=== PATIENT | male | born 1995 | race Caucasian/White ===

== ENCOUNTER 2019-11-05 12:02 | Inpatient (IN) | payer OTHER ==
[~2019-11-05 12:02] MED LIST: Dexamethasone 20 MG/5 ML VIAL ONE; Lidocaine 1% PF 5 ML VIAL ONE; Ondansetron PF 4 MG/2 ML Vial ONE; PROPOFOL 200 MG/20 ML VIAL ONE; Rocuronium Bromide 10 MG/ML (10ML VIAL) ONE
[2019-11-05] MEDS ORDERED: Adacel (T-DAP) 0.5 ML SYRINGE ONE (12:04)
[2019-11-05] MEDS ORDERED: Fentanyl 100 MCG/2 ML VIAL ONE ×6 (12:19→17:01)
--- NOTE | 2019-11-05 12:29 | RAD ---
CHEST 1 VIEW: Date: 11/05/2019 HISTORY: Injury from a fall. FINDINGS: Heart size is within normal limits. Lungs are clear. No confluent pneumonia, overt edema, or pleural effusion. No pneumothorax. IMPRESSION: No significant acute intrathoracic disease. POS: [facility]
[2019-11-05 12:35] LABS: #Basophils 0.1 thou/uL (0.0-0.2); #Eosinphils 0.1 thou/uL (0.0-0.7); #Lymphocytes 2.5 thou/uL (1.20-3.40); #Monocytes 0.9 thou/uL (0.11-0.59); #Neutrophils 12.1 thou/uL (1.40-6.50); %Basophils 0.4 % (0.0-1.0); %Eosinophils 0.6 % (0.0-10.0); %Lymphocytes 15.9 % (21.0-51.0); %Monocytes 5.6 % (0.0-10.0); %Neutrophils 77.4 % (42.0-75.0); Hemoglobin 16.6 g/dL (14.0-18.0); Mean Corpuscular HGB CONC 33.5 g/dL (32.0-36.0); Mean Corpuscular Hemoglobin 30.2 pg (27.0-31.0); Mean Corpuscular Volume 90.2 fL (78.0-98.0); Mean Platelet Volume 7.2 fL (7.4-10.4); Platelet Count 324 thou/uL (130-400); Red Blood Cell (RBC) Count 5.51 mill/uL (4.70-6.10); White Blood Cell (WBC) Count 15.6 thou/uL (4.8-10.8)
--- NOTE | 2019-11-05 12:48 | RAD ---
RIGHT TIBIA AND FIBULA 2 VIEWS: Date: 11/05/2019 HISTORY: Injury from a fall, open fracture. FINDINGS: Minimally comminuted, very irregular, displaced and angulated fractures are noted involving the dista l tibia and distal fibular diaphyses. Proximal tibia and fibula appear intact. The ankle proper appea rs intact. IMPRESSION: Minimally comminuted, irregular, minimally displaced and slightly angulated fractures of the mid and distal tibial and fibular diaphyses. POS: [facility]
[2019-11-05 12:54] LABS: ALT (SGPT) 41 U/L (8-55); AST (SGOT) 16 U/L (5-34); Albumin 4.5 g/dL (3.5-5.0); Alkaline Phosphatase 70 U/L (40-110); Anion Gap 13 mmol/L (10-20); BUN (Urea Nitrogen) 15 mg/dL (8.9-20.6); Bilirubin, Total 0.4 mg/dL (0.2-1.2); CK (CPK) 146 U/L (30-200); Calc. Creatinine Clearance 0 mL/min (70-130); Calcium 9.1 mg/dL (7.8-10.44); Carbon Dioxide 22 mmol/L (22-29); Chloride 106 mmol/L (98-107); Estimated GFR-MDRD 80; Globulin 2.7 g/dL (2.4-3.5); Glucose 111 mg/dL (70-105); Potassium 3.7 mmol/L (3.5-5.1); Protein, Total 7.2 g/dL (6.0-8.3); Sodium 137 mmol/L (136-145)
[2019-11-05] MEDS ORDERED: Ketorolac Tromethamine 30 MG/ML VIAL ONE (13:38)
[2019-11-05] MEDS ORDERED: hydrALAZINE 20 MG/ML VIAL SLOW IVP PRN (13:45)
[2019-11-05] MEDS ORDERED: Sodium Chloride 0.9% 1,000 ML IV SCH (13:45)
[2019-11-05] MEDS ORDERED: Dextrose 50% Abboject 50 ML SYRINGE SLOW IVP PRN (13:45)
[2019-11-05] MEDS ORDERED: Ondansetron PF 4 MG/2 ML Vial IVP PRN (13:45)
[2019-11-05] MEDS ORDERED: Morphine 4 MG/ML VIAL SLOW IVP PRN (13:45)
[2019-11-05] MEDS ORDERED: Dextrose 5% in Water 1,000 ML IV PRN (13:45)
[2019-11-05] MEDS ORDERED: Cyclobenzaprine 10 MG TAB PO PRN (13:50)
[2019-11-05] MEDS ORDERED: traMADol HCl 50 MG TAB PO PRN ×2 (13:50→14:08)
[2019-11-05] MEDS ORDERED: SUGAMMADEX SODIUM 200 MG/2 ML VIAL ONE (15:48)
--- NOTE | 2019-11-05 16:31 | RAD ---
Right lower leg 2 views intraoperative fluoroscopy HISTORY: Fracture. FINDINGS: Intraoperative fluoroscopy was provided for internal fixation as performed by Dr. Crawford . Spot fluoroscopic images shows a long medullary sharon and screws transfixing the distal tibial shaft fracture, in anatomic alignment. Mildly displaced distal fibular shaft fracture is also apparen t. Fluoroscopy time 73 seconds.
[2019-11-05] MEDS ORDERED: Meperidine HCl/PF 25 MG/ML VIAL ONE (17:02)
--- NOTE | 2019-11-05 18:26 | OP ---
DATE OF PROCEDURE: 11/05/2019 OPERATIONS PERFORMED: 1. Right tibia fracture intramedullary nail with fibular fracture. 2. Irrigation and debridement of open right tibia fracture. PREOPERATIVE DIAGNOSIS: Displaced open right tibia and fibular fracture. POSTOPERATIVE DIAGNOSIS: Displaced open right tibia and fibular fracture. COMPLICATIONS: None. ESTIMATED BLOOD LOSS: 150 mL. IMPLANTS: Synthes 345-mm nail x 9 mm. INDICATIONS: Mr. Parmar is a 24-year-old male who fell from a ladder. He fractured his right tibia and fibula. He had an open fracture. He was indicated for intramedullary nail fixation of the tibia to restore anatomic alignment and promote healing. Risks have been reviewed in detail. He has elected to proceed with the operation. DESCRIPTION OF PROCEDURE: Mr. Parmar was identified in the preoperative holding area. His correct extremity was marked. He was carried to the operating room. He was positioned supine. General anesthesia was induced. A multidisciplinary time-out was performed. The right lower extremity was prepped and draped in a sterile fashion. We began the procedure by making an extension of the patient's traumatic wound. He had a 2-cm laceration over the medial distal leg. This tracked deeply to the bone. We extended this and thoroughly irrigated with copious lavage. We sharply debrided the wound. At this point, we moved to the knee. We made a small incision over the anterior aspect of the knee. We dissected down through the subcutaneous tissues to the patellar tendon. We made a medial parapatellar arthrotomy. At this point, a guidewire was placed into the proximal tibial plateau. We overdrilled the guidewire. We then inserted our ball-tipped guidewire from proximal to distal across the fracture, seating in a centered position at the distal aspect of the tibia. Next, we over-reamed the guidewire. We reamed from a size 8.5 up to a size 10. We measured for a 345-mm nail and a 9 mm nail was chosen and impacted appropriately. We placed 2 proximal Crosslock screws and then two perfect [place] distal Crosslock screws. We took final x-ray images in all planes. We thoroughly irrigated with copious lavage. At this point, we closed in layers and a sterile dressing was placed. The patient was taken to the recovery room in good condition. Job ID: [id number]
[2019-11-05] MEDS: Acetaminophen 500 MG TAB PO SCH ×2 (19:13→19:52)
[2019-11-05] MEDS: Senokot S 8.6-50 MG TAB PO SCH (19:53)
[2019-11-05] MEDS: Famotidine/PF 20 mg/2ml Vial SLOW IVP SCH (19:55)
[2019-11-05 20:11] VITALS: BMI 38.6
[2019-11-05] MEDS ORDERED: Promethazine HCl 25 MG/ML VIAL IM/IV PRN (21:05)
[2019-11-05] MEDS: traMADol HCl 50 MG TAB PO SCH (21:53)
[2019-11-05] MEDS ORDERED: CEFAZOLIN 2 GM in Premix Bag 1 BAG IVPB SCH (22:00)
[2019-11-05] MEDS: Gabapentin 300 MG CAP PO SCH (22:35)
[2019-11-05] MEDS: Ibuprofen 600 MG TAB PO SCH (22:35)
[2019-11-05] MEDS: CEFAZOLIN 2 GM in Premix Bag 1 BAG IVPB SCH (23:19)
--- NOTE | 2019-11-05 23:26 | PRG ---
DATE OF SERVICE: 11/05/2019 SUBJECTIVE: The patient had some increased pain and nausea postop. The patient is currently resting and pain is well controlled at this time. OBJECTIVE: VITAL SIGNS: Stable, afebrile. PLAN: We will add Phenergan for nausea as needed. We will also add gabapentin to the patient's pain regimen. We will also schedule the patient's tramadol 100 mg p.o. q.6 hours. Increase activity per Physical Therapy. Once the patient's pain is controlled, he should be able to be discharged home tomorrow. Job ID: [id number]
[2019-11-06] MEDS: Acetaminophen 500 MG TAB PO SCH ×3 (02:59→13:39)
[2019-11-06] MEDS: traMADol HCl 50 MG TAB PO SCH ×3 (03:00→16:18)
[2019-11-06 05:11] LABS: #Lymphocytes 1.3 thou/uL (1.20-3.40); #Monocytes 0.8 thou/uL (0.11-0.59); #Neutrophils 11.8 thou/uL (1.40-6.50); %Basophils 0.1 % (0.0-1.0); %Eosinophils 0.1 % (0.0-10.0); %Monocytes 5.9 % (0.0-10.0); %Neutrophils 84.8 % (42.0-75.0); Hemoglobin 14.1 g/dL (14.0-18.0); Mean Corpuscular HGB CONC 34.4 g/dL (32.0-36.0); Mean Corpuscular Hemoglobin 31.1 pg (27.0-31.0); Mean Corpuscular Volume 90.4 fL (78.0-98.0); Mean Platelet Volume 7.2 fL (7.4-10.4); Platelet Count 318 thou/uL (130-400); RBC Distribution Width 12.1 % (11.5-14.5); Red Blood Cell (RBC) Count 4.54 mill/uL (4.70-6.10); White Blood Cell (WBC) Count 13.9 thou/uL (4.8-10.8)
[2019-11-06 05:21] LABS: Anion Gap 12 mmol/L (10-20); BUN (Urea Nitrogen) 13 mg/dL (8.9-20.6); Calc. Creatinine Clearance 193 mL/min (70-130); Calcium 8.5 mg/dL (7.8-10.44); Carbon Dioxide 23 mmol/L (22-29); Chloride 105 mmol/L (98-107); Estimated GFR-MDRD 84; Glucose 130 mg/dL (70-105); Magnesium 1.9 mg/dL (1.6-2.6); Phosphorus 3.8 mg/dL (2.3-4.7); Potassium 4.4 mmol/L (3.5-5.1); Sodium 136 mmol/L (136-145)
--- NOTE | 2019-11-06 06:02 | HP ---
RESIDENT: Xochilt Nugent DO HISTORY OF PRESENT ILLNESS: Mr. Parmar is a 24-year-old male with no known medical problems, coming into the emergency department after falling from a ladder from about 6 to 8 feet of height. He said he landed on the ground and immediately saw deformity to his right lower leg with severe 9/10 pain. The patient complains of a cut to his lower leg where his bone fractured through it. The patient denies any further injuries from this ladder fall. Denies any headache, abdominal pain, back pain, or joint pain. The patient states that his pain is now 3/10 in intensity. EMERGENCY DEPARTMENT COURSE: Chest x-ray, no significant acute intrathoracic disease. Tibia-fibula x-ray of the right lower extremity, minimally comminuted, irregular, minimally displaced, and slightly angulated fractures of the mid and distal tibia and fibular diaphysis. H and H 16.6 and 49.7. Chemistries within normal limits. White blood cell count 15.6. PAST MEDICAL HISTORY: No known medical problems. MEDICATIONS: No home medications. ALLERGIES: NO KNOWN DRUG ALLERGIES. FAMILY MEDICAL HISTORY: Maternal grandmother, diabetes mellitus. Mother, asthma. SOCIAL HISTORY: Denies any use of alcohol, tobacco, or illicit drugs. CODE STATUS: Full code. REVIEW OF SYSTEMS: GENERAL: No fevers or chills. HEENT: Recent anaphylactic reaction of unknown cause on October 31, where the patient was seen at [facility] Emergency Department, states this is resolved. He had swelling of the throat and difficulty breathing. Denies sore throat. SKIN: Denies rash or bruising. LUNGS: Denies cough or shortness of breath. CARDIAC: Denies chest pain or palpitations. ABDOMEN: Denies abdominal pain, nausea, vomiting, or diarrhea. MSK: See HPI. Denies any further injuries to the joint or pain localized elsewhere other than the right lower extremity. NEUROLOGIC: Denies dizziness, focal weakness, or paresthesias. all other negative is not specified above. PHYSICAL EXAMINATION: VITAL SIGNS: Blood pressure 130/86, respiratory rate 18, oxygen saturation 97% on room air, heart rate 93, and temperature 98.9. GENERAL: In no acute distress. Alert and oriented x3. Resting comfortably. Has just received a fentanyl shot. HEENT: Extraocular movements intact. PERRLA. Mouth, poor dentition. NECK: Trachea midline. No tenderness to cervical spine. LUNGS: Clear to auscultation bilaterally. No wheezing, rales, or rhonchi. CARDIAC: Regular rate and rhythm. No murmurs, gallops, or rubs. ABDOMEN: Soft, obese, nontender to palpation, nondistended. No peritoneal signs. EXTREMITIES: Neurovascularly intact x4. Capillary refill of the right lower extremity distal to the injury is approximately 3 seconds. No paresthesias distal to the right lower extremity injury, or bilaterally. MSK: Open tib-fib fracture of the distal tib-fib on the right leg, bandage clean and dry. SKIN: Warm and dry. Normal in color. See MSK for open right tib-fib fracture description. NEUROLOGIC: Oriented to person, place, and time. Speech normal. Thought process normal. No focal neurological deficits. ASSESSMENT AND PLAN: 1. Right lower extremity open distal tib-fib fracture. Plan, Ortho Surgery consulted, Dr. Crawford plans to take the patient for ORIF today. Continue pain management and supportive care. 2. Leukocytosis, likely reactive secondary to trauma. We will trend, monitor for resolution. The patient was seen and evaluated by Dr. Murphy, who is in agreement with the above-stated plan. Job ID: [id number] [facility]
[2019-11-06] MEDS: Ibuprofen 600 MG TAB PO SCH ×2 (06:36→15:15)
[2019-11-06] MEDS: Gabapentin 300 MG CAP PO SCH ×2 (06:36→15:15)
[2019-11-06] MEDS: Senokot S 8.6-50 MG TAB PO SCH (08:55)
[2019-11-06] MEDS: Famotidine/PF 20 mg/2ml Vial SLOW IVP SCH (08:55)
[2019-11-06] MEDS: CEFAZOLIN 2 GM in Premix Bag 1 BAG IVPB SCH (08:55)
[2019-11-06] MEDS ORDERED: Polyethylene Glycol 3350 17 GM Packet PO SCH (09:00)
[2019-11-06] MEDS ORDERED: Enoxaparin Sodium 40 MG/0.4 ML SYRINGE SC SCH (09:00)
[2019-11-06 13:03] VITALS: BP 153/86; TEMP 98.9
[2019-11-06] MEDS ORDERED: CEFAZOLIN 2 GM in Premix Bag 1 BAG IVPB SCH (15:00)
== END 2019-11-06 17:40 | disposition home or self-care (01) | DRG 492 ==
LOC: ERS 12:02 → SURG A 18:07
PROVIDERS: ADMIT Orthopaedic Surgery; ATTEND Orthopaedic Surgery
PROC: 0QHG06Z Insertion of Intramedullary Internal Fixation Device into Right Tibia, Open Approach (ICD-10-PCS; principal; 2019-11-05)
PROC: 3E0234Z Introduction of Serum, Toxoid and Vaccine into Muscle, Percutaneous Approach (ICD-10-PCS; 2019-11-05)
DX: S82.301B Unspecified fracture of lower end of right tibia, initial encounter for open fracture type I or II (principal); S82.831B Other fracture of upper and lower end of right fibula, initial encounter for open fracture type I or II; W11.XXXA Fall on and from ladder, initial encounter; Z23 Encounter for immunization
CPT/HCPCS: 27752; 36415; 71045; 76000; 80048; 80053; 82550; 83735; 84100; 85025; 86850; 86900; 86901; 90471; 90715; 93005; 94640; 96361; 96374; 96375; 96376; C1713; G0390; J0690; J1100; J1650; J1885; J2001; J2175; J2270; J2405; J2704; J3010; J7620; S0028

== ENCOUNTER 2020-07-24 09:57 | Outpatient (CLI) | payer OTHER ==
[2020-07-24 22:31] LABS: SARS-CoV-2 PCR by NAA Not Detected (NotDetected)
== END 2020-07-24 09:58 | disposition home or self-care (01) ==
LOC: LABBT 09:57
PROVIDERS: ATTEND Orthopaedic Surgery
DX: Z01.812 Encounter for preprocedural laboratory examination (principal); T85.848A Pain due to other internal prosthetic devices, implants and grafts, initial encounter; Z20.822 Contact with and (suspected) exposure to COVID-19
CPT/HCPCS: 87635; U0003; U0005

== ENCOUNTER 2020-07-29 10:15 | Day surgery (SDC) | payer OTHER ==
[2020-07-29] MEDS ORDERED: Clindamycin/D5W 900 mg/50 ml Premix Bag ONE (11:04)
[2020-07-29] MEDS ORDERED: Levofloxacin 500 mg/D5W 100 ml Premix Bag ONE ×2 (11:04→13:37)
[2020-07-29] MEDS ORDERED: Fentanyl 100 MCG/2 ML VIAL ONE ×4 (11:19→17:54)
[2020-07-29] MEDS ORDERED: Lidocaine 1% PF 5 ML VIAL ONE (13:45)
[2020-07-29] MEDS ORDERED: PROPOFOL 200 MG/20 ML VIAL ONE (13:45)
[2020-07-29] MEDS ORDERED: Dexamethasone 20 MG/5 ML VIAL ONE (13:45)
[2020-07-29] MEDS ORDERED: Ketorolac Tromethamine 30 MG/ML VIAL ONE (13:45)
[2020-07-29] MEDS ORDERED: Ondansetron PF 4 MG/2 ML Vial ONE (13:45)
[2020-07-29] MEDS ORDERED: Labetalol HCl 100 MG/20 ML VIAL ONE (15:19)
[2020-07-29] MEDS ORDERED: Promethazine HCl 25 MG/ML VIAL ONE (15:29)
[2020-07-29] MEDS ORDERED: Meperidine HCl/PF 25 MG/ML VIAL ONE (15:32)
[2020-07-29] MEDS ORDERED: HYDROcodone/Acetaminophen 5/325 mg Tablet ONE (16:50)
[2020-07-29] MEDS ORDERED: Sodium Chloride 0.9% 10 ML ONE (17:52)
== END 2020-07-29 18:49 | disposition home or self-care (01) ==
LOC: SDC 10:15
PROVIDERS: ATTEND Orthopaedic Surgery
PROC: 0YP90YZ Removal of Other Device from Right Lower Extremity, Open Approach (ICD-10-PCS; principal; 2020-07-29)
DX: T84.84XA Pain due to internal orthopedic prosthetic devices, implants and grafts, initial encounter (principal); Z79.899 Other long term (current) drug therapy; Z88.0 Allergy status to penicillin; Z88.1 Allergy status to other antibiotic agents
CPT/HCPCS: 76000; J1100; J1885; J1956; J2175; J2405; J2550; J2704; J3010; J3490